=== PATIENT | female | born 1950 | race Caucasian/White ===

== ENCOUNTER → 2018-12-04 16:35 | Outpatient (CLI) | payer MEDICARE, OTHER ==
[2014-08-19 02:16] VITALS: BMI 30.8
[~2018-12-04 16:35] MED LIST: ASPIRIN EC81 M1 PO; BENADRYL25 MG PO; BUSPAR10 MG PO; CARAFATE1 G PO; CATAPRES0.1 MG PO; CITRUCEL500 MG PO; CRESTOR10 MG PO; EFFEXOR75 MG PO; KRILL OIL 1,001 EAC1 PO; LEVOTHROID100 MCG PO; MAGNESIUM GLUC500 M1 PO; PERCOCET 10/3251 TA1 PO; PHENERGAN25 M1 PO; PRILOSEC10 MG PO; ZOFRAN ODT4 MG/UDTAB PO
== END | disposition home or self-care (01) ==
LOC: D.MAMMO 11:15
PROVIDERS: ATTEND Emergency Medicine
DX: Z12.31 Encounter for screening mammogram for malignant neoplasm of breast (principal)

== ENCOUNTER 2020-05-16 14:30 | Outpatient (CLI) | payer MEDICARE, OTHER ==
[2014-08-19 02:16] VITALS: BMI 30.8
== END 2020-05-16 23:59 | disposition home or self-care (01) ==
LOC: D.MAMMO 14:30
PROVIDERS: ATTEND Nurse Practitioner
DX: Z12.31 Encounter for screening mammogram for malignant neoplasm of breast (principal)

== ENCOUNTER 2020-11-17 17:55 | Observation (INO) | payer MEDICARE, OTHER ==
[~2020-11-17] VITALS: Ht 154.9 cm; Wt 63.6 kg
--- NOTE | ~2020-11-17 | OP ---
PATIENT NAME: NICOLE ESTES MEDICAL RECORD: [id number] :52 LOCATION:D.MS [place] ADMISSION DATE:11/17/20 SURGEON: VIOLA LAUREN MD DATE OF OPERATION: 11/18/2020 PREOPERATIVE DIAGNOSES: Acute appendicitis with localized peritonitis. POSTOPERATIVE DIAGNOSES: Acute appendicitis with localized peritonitis. PROCEDURE: Laparoscopic appendectomy. SURGEON: Viola Lauren MD EXTENSION COURSE COUNSELOR: None. BLOOD LOSS: Minimal. ANESTHESIA: General. COMPLICATIONS: None. The risks, possible complications, and alternatives of the procedure were explained to the patient. She elects to proceed. OPERATIVE COURSE: The patient was conveyed to the operating room urgently on 11/18/2020. General anesthesia was induced by the anesthesia staff. The abdomen was sterilely prepped and draped. A small skin fabio was accomplished in the left upper quadrant. Through the skin fabio, a Veress needle was inserted into the peritoneal cavity. CO2 insufflation was begun. Once a sufficient pneumoperitoneum had been achieved, a 5-mm trocar was inserted through a transverse incision in the left lower quadrant. Under direct internal vision utilizing a television camera, a 12-mm trocar was inserted through the incision at the umbilicus and another 5-mm trocar was inserted through an incision in the suprapubic area in the midline. During insertion of the Veress needle and all trocars, there appeared to have been no injury to the bowels, any intraperitoneal or retroperitoneal structures. Abdominal survey was undertaken. I noted no abscess. I was able to bluntly dissect the appendix away from the right pelvic sidewall. It was grasped and retracted anteriorly. The mesoappendix was taken down with the laparoscopic EnSeal device. I then stapled across the tip of the cecum with an Endo-SAIDA type stapler utilizing a blue load. The appendix was placed within a bag retrieval device and was withdrawn through the umbilical fascial defect. The 12-mm trocars were placed and the abdomen reinsufflated. I irrigated and aspirated in the pelvis. There was no bleeding even at low pressure of 8. The Scott-Ryne suture closure device and 0 Vicryl sutures were used to close the umbilical fascia. All the trocars were removed and the abdomen desufflated. The skin incision at the umbilicus was closed with interrupted 4-0 Vicryl Rapide suture. The other skin incisions were closed with interrupted intracuticular 3-0 Vicryls. Benzoin and Steri-Strips were applied. OPERATIVE REPORT [id number] NICOLE ESTES The patient was then extubated and conveyed to post-anesthesia care unit where she was in stable condition. She will be dismissed home on Colace, tramadol, Flagyl as well as Levaquin. I will see her in the office in 2 to 3 weeks. TRANSINT:[id number] Voice Confirmation ID: [id number] DOCUMENT ID: [id number] VIOLA LAUREN MD CC: [id number] DICTATION DATE: 11/18/20932 WEATHERIZATION OPERATIONS MANAGER: 11/18/20 1147 ADM IN [place] [id number] [place] [address]
--- NOTE | ~2020-11-17 | CN ---
PATIENT NAME:NICOLE ESTES MEDICAL RECORD: [id number] : 52 LOCATION:D.MS [place] ADMIT DATE: 11/17/20 ACCOUNT: [id number] CONSULTING PHYSICIAN: VIOLA LAUREN MD REFERRING PHYSICIAN: TAISHA HARRINGTON MD DATE OF CONSULTATION: 11/18/2020 CHIEF COMPLAINT: Appendicitis. HISTORY OF PRESENT ILLNESS: I have reviewed the patient's CT images. I have reviewed the patient's CT report. She has had a right lower quadrant abdominal pain for anywhere from 2-4 days. She has localized peritonitis to percussion. The risks, possible complications, and alternatives of the procedure were explained to the patient. She elects to proceed. The discussion specifically included, but was not limited to, bleeding requiring emergency reoperation, infection. PAST MEDICAL AND SURGICAL HISTORY: Hysterectomy, cholecystectomy, history of some type of anxiety disorder. She has undergone some type of antireflux procedure, hypothyroidism, on replacement therapy, "borderline" apnea, hypertension, vertigo. ALLERGIES: MULTIPLE ALLERGIES ARE NOTED. SHE STATES THAT SHE CAN TAKE MORPHINE SHE THINKS, ALTHOUGH SHE DOES LIST THIS AN ALLERGY. SOCIAL HISTORY: Nonsmoker, drinks alcohol occasionally. MEDICINES AT HOME: Please see the nursing list. PHYSICAL EXAMINATION: GENERAL: She does appear acutely ill. Does not appear chronically ill. VITAL SIGNS: Reviewed. EARS: External ears appear normal. EYES: Extraocular movements are intact. NECK: Trachea is midline. CHEST: No intercostal retractions. PULMONARY: Nonlabored. No stridor. ABDOMEN: As described above. IMPRESSION: Acute appendicitis with localized peritonitis. PLAN: Laparoscopic appendectomy. TRANSINT:[id number] Voice Confirmation ID: [id number] DOCUMENT ID: [id number] VIOLA LAUREN MD CC: SHANELL CHOWDHURY [id number] DICTATION DATE: 11/18/20811 LOBSTER CATCHER: 11/18/20 1059 ADM IN [place] [id number] [place] [address]
[2020-11-17] MEDS ORDERED: TRINTELLIX5 MG PO (18:03)
[2020-11-17] MEDS ORDERED: PROPRANOLOL HCL10 MG PO (18:03)
[2020-11-17] MEDS ORDERED: PROMETRIUM100 MG PO (18:04)
[2020-11-17] MEDS ORDERED: CRESTOR10 MG PO (18:04)
[2020-11-17] MEDS ORDERED: BIEST (18:05)
[2020-11-17] MEDS ORDERED: [UNRECOGNIZED DRUG - OTHER] (18:05)
[2020-11-17 18:47] LABS: BASOPHILS 0.2 % (0-2); EOSINOPHILS 0.1 % (0-7); HEMATOCRIT 47.8 % (36.0-48.0); HEMOGLOBIN 15.4 g/dL (12-16); IMMATURE GRANULOCYTES 0.2 % (0-5); LYMPHOCYTE ABS# 1.24 10x3/uL (1.18-3.74); LYMPHOCYTES 10.9 % (15-50); MCH 26.8 pg (26.0-34.0); MCHC 32.2 g/dL (31.0-37.0); MCV 83.1 fL (80.0-100.0); MONOCYTES 6.3 % (2-11); NEUTROPHIL ABS# 9.36 10x3/uL (1.56-6.13); NEUTROPHILS 82.3 % (40-80); PLATELET COUNT 211 10x3/uL (130-400); RBC 5.75 10x6/uL (4.00-5.40); RDW 13.7 % (11.5-14.5); WBC 11.4 10x3/uL (4.8-10.8)
[2020-11-17 18:54] LABS: CALC OSMOLALITY 278 mosm/kg (275-300); CALCIUM 9.4 mg/dL (8.5-10.1); CARBON DIOXIDE 28.4 mmol/L (21.0-32.0); CHLORIDE - SERUM 101 mmol/L (98-107); CREATININE - SERUM 0.8 mg/dL (0.6-1.3); GLUCOSE 137 mg/dL (74-106); POTASSIUM - SERUM 3.9 mmol/L (3.5-5.1); SODIUM 138 mmol/L (136-145); UREA NITROGEN 14 mg/dL (7-18); eGFR NON AFRICAN AMERICAN 75 mL/min (90-120)
[2020-11-17 19:05] LABS: ALBUMIN 3.7 g/dL (3.4-5.0); ALKALINE PHOSPHATASE 61 U/L (30-120); ALT (SGPT) 26 U/L (10-68); AMYLASE - SERUM 44 U/L (25-115); BILIRUBIN - TOTAL 0.53 mg/dL (0.2-1.3); LIPASE 105 U/L (73-393)
[2020-11-17 19:09] LABS: TROPONIN-I < 0.017 ng/mL (0.000-0.060)
[2020-11-17 19:39] LABS: BILIRUBIN NEGATIVE (NEGATIVE); KETONE MODERATE mg/dL (NEGATIVE); NITRITE NEGATIVE (NEGATIVE); UROBILINOGEN NORMAL mg/dL (< 2)
[2020-11-17 19:45] LABS: UDS - AMPHET NEGATIVE QUAL (NEGATIVE); UDS - BARB NEGATIVE QUAL (NEGATIVE); UDS - BENZO NEGATIVE QUAL (NEGATIVE); UDS - COCAINE NEGATIVE QUAL (NEGATIVE); UDS - OPIATE NEGATIVE QUAL (NEGATIVE); UDS - PCP NEGATIVE QUAL (NEGATIVE); UDS - THC NEGATIVE QUAL (NEGATIVE)
[2020-11-17 20:00] VITALS: BP 121/70
[2020-11-17 21:00] VITALS: BP 117/58
[2020-11-17 22:00] VITALS: BP 122/63
[2020-11-18 00:23] VITALS: BP 119/66
[2020-11-18 03:41] VITALS: Ht 154.9 cm; Wt 63.6 kg
[2020-11-18 04:00] VITALS: BP 93/46
--- NOTE | 2020-11-18 04:11 | NUR ---
PT UP TO BATHROOM SHE PULLED IV THAT WAS IN HER RFA. IV REMOVED INTACTED. NEW IV PLACE LFA 20G NS @100ML. O2 PLACE FOR PT @2L. PT IS COMPLAINING OF PAIN MED GIVEN.
[2020-11-18 05:43] LABS: BASOPHILS 0.1 % (0-2); EOSINOPHILS 0 % (0-7); IMMATURE GRANULOCYTES 0.2 % (0-5); LYMPHOCYTE ABS# 1.71 10x3/uL (1.18-3.74); LYMPHOCYTES 16.5 % (15-50); MCH 25.9 pg (26.0-34.0); MCHC 31.4 g/dL (31.0-37.0); MCV 82.4 fL (80.0-100.0); MEAN PLATELET VOLUME 9.6 fL (7.4-10.4); MONOCYTES 8.3 % (2-11); NEUTROPHIL ABS# 7.74 10x3/uL (1.56-6.13); NEUTROPHILS 74.9 % (40-80); PLATELET COUNT 243 10x3/uL (130-400); RDW 13.8 % (11.5-14.5); WBC 10.3 10x3/uL (4.8-10.8)
[2020-11-18 05:49] LABS: HEMATOCRIT 37.9 % (36.0-48.0); HEMOGLOBIN 11.9 g/dL (12-16)
[2020-11-18 05:55] LABS: APTT 28.3 SECONDS (22.8-39.4); INR 1.21 (0.85-1.17); PROTIME 14.2 SECONDS (11.6-15.0)
[2020-11-18 05:59] LABS: ALKALINE PHOSPHATASE 49 U/L (30-120); BILIRUBIN - TOTAL 0.87 mg/dL (0.2-1.3); CALC OSMOLALITY 272 mosm/kg (275-300); CALCIUM 7.9 mg/dL (8.5-10.1); CARBON DIOXIDE 26.4 mmol/L (21.0-32.0); CHLORIDE - SERUM 102 mmol/L (98-107); CREATININE - SERUM 0.7 mg/dL (0.6-1.3); GLUCOSE 119 mg/dL (74-106); MAGNESIUM - SERUM 2.4 mg/dL (1.8-2.4); PHOSPHOROUS 2.4 mg/dL (2.5-4.9); POTASSIUM - SERUM 3.6 mmol/L (3.5-5.1); PROTEIN - SERUM 6.2 g/dL (6.4-8.2); SODIUM 136 mmol/L (136-145); UREA NITROGEN 12 mg/dL (7-18); eGFR NON AFRICAN AMERICAN 88 mL/min (90-120)
[2020-11-18 06:05] LABS: ALBUMIN 2.7 g/dL (3.4-5.0); ALT (SGPT) 118 U/L (10-68)
--- NOTE | 2020-11-18 07:52 | NUR ---
OFF FLO[facility] AT [facility] TIME [facility] STABLE CONDITION UPON DEPARTURE.
[2020-11-18 10:17] VITALS: BP 95/55
--- NOTE | 2020-11-18 10:22 | NUR ---
REC'D BACK TO ROOM 2210 AT THIS TIME WITH A BP OF 95/55. BP WAS TAKEN A COUPLE MORE TIME WITH BP. FLUID WAS RESTARTED SHORTLY AFTER AND PT CHECKED ON OFTEN. EASILY TO AROUSED WHEN NAME WAS CALLED. NO C/O NOTED OR VOICED AT THIS TIME. AND C/L IN REACH AT BEDSIDE.
--- NOTE | 2020-11-18 10:32 | NUR ---
pt sent to room. bp was 95/55 upon arrival to room. bp before surgery according to chart was 93/46 at 0400. no narcotics were given during the time in pacu. pt awake and talking while in room to . pt on 3 l. vss. relayed to nurse that pt was difficult to wake up from anesthesia and was very drowsy so no narcotics given.
[2020-11-18 12:00] VITALS: BP 89/53
[2020-11-18] MEDS ORDERED: HYDROCODON-ACE1 EAC7 PO ×2 (16:30→16:31)
[2020-11-18] MEDS ORDERED: COLACE100 MG PO (16:46)
[2020-11-18] MEDS ORDERED: FLAGYL500 MG PO (16:46)
[2020-11-18] MEDS ORDERED: LEVOFLOXACIN500 MG PO (16:47)
[2020-11-18 17:11] VITALS: BP 147/92
--- NOTE | 2020-11-18 18:22 | NUR ---
I have reviewed this patient and I concur with the Shift Assessment completed by the Licensed Practical Nurse today this shift.
--- NOTE | 2020-11-18 18:33 | NUR ---
DC HOME AT THIS TIME WITH ALL PERSONAL BELONGING. VOICE UNDERSTANDING OF DC INSTRUCTION. IV DC NO C/O NOTE. C/L IN REACH AT BEDSIDE.
== END 2020-11-18 19:40 | disposition home or self-care (01) ==
LOC: D.ER 17:55 → D.MS 20:16 → OBSVTIME 20:16 → D.ER 22:18 → D.MS 22:18
PROVIDERS: Family Medicine; ADMIT Family Medicine; ATTEND Family Medicine
DX: K35.30 Acute appendicitis with localized peritonitis, without perforation or gangrene (principal); R10.30 Lower abdominal pain, unspecified; I10 Essential (primary) hypertension; K21.9 Gastro-esophageal reflux disease without esophagitis; E78.5 Hyperlipidemia, unspecified; G47.33 Obstructive sleep apnea (adult) (pediatric); M19.90 Unspecified osteoarthritis, unspecified site

== ENCOUNTER 2020-11-21 13:07 | Inpatient (IN) | payer MEDICARE, OTHER ==
[~2020-11-21] VITALS: Ht 154.9 cm; Wt 69.6 kg
--- NOTE | ~2020-11-21 | HEMODYNAMI ---
PATIENT:NICOLE ESTES MEDICAL RECORD: [id number] : 52 LOCATION:[place] [address] ADMISSION DATE: 11/21/20 Generatedon:114:18 Patient name: NICOLE ESTES Patient #: [id number] SSN: : 1950 Date of study: 11/25/2020 Page: Of Hemodynamic Procedure Report Patient Data Patient Demographics Procedure consent was obtained First Name: NICOLE Gender: Female Last Name: FRANKLYN : 1950 Middle Initial: NESTOR Age: 70 year(s) Patient #: [id number] Race: Unknown Additional ID: [id number] Contact details [address]: [address] [place] [address] State: [place] City: [place] Zip code: [address] Admission Admission Data Admission Date: 11/21/2020 Admission Time: 20:53 Room #: D.2209 Procedure Procedure Types Cath Procedure Peripheral Cath Diagnostic Procedure Abscess Abscess Drain Injection Procedure Description Procedure Date Procedure Date: 11/25/2020 Procedure Start Time: 14:05 Procedure Staff Name Function Omega Orozoc MD Performing Physician Charles Husain RT Monitor FRANCIE SMALLWOOD RT Scrub Pao Yi RN Nurse Procedure Data Cath Procedure Fluoroscopy Diagnostic fluoroscopy Total fluoroscopy Time: 0.9 time: 0.9 min min Diagnostic fluoroscopy Total fluoroscopy dose: 14 dose: 14 mGy mGy Contrast Material Contrast Material Type Amount (ml) Isovue 300 10 Hemodynamics Rest Pre Cath Intra NCS Post Cath Procedure Log Time Note 13:50:58 Charles Husain RT (R) (CV) sent for patient. Start room use. 13:51:07 Time tracking: Regular hours (M-F 7:00 - 5:00) 13:51:13 Plan of Care:Hemodynamics will remain stable., Cardiac rhythm will remain stable., Comfort level will be maintained., Respiratory function will remain adequate., Patient/ family verbilizes understanding of procedure., Procedure tolerated without complication., Recovers from procedure without complications.. 13:51:22 Patient received from Med/Surg to IR Alert and oriented. Tansferred to table in Prone position. 13:51:26 Signed procedure consent form obtained from patient. 13:51:28 Correct patient and procedure confirmed by team. 13:51:30 Full Disclosure recording started 13:51:39 - 13:51:45 H&P Date Dictated: 11/25/2020 Within 30 days and on chart.. 13:51:47 Pre-procedure instructions explained to patient. 13:51:47 Pre-procedure instructions explained to patient. 13:51:48 Pre-op teaching completed and patient verbalized understanding. 13:51:51 Family in patients room. 13:51:54 Patient NPO since Breakfast. 13:52:02 Use device set IR Diagnostic 13:52:04 Bag Decanter () opened to sterile field. 13:52:04 Sterile Angiographic Pack opened to sterile field. 13:52:05 Tegaderm 4 x 4 ([id number]) opened to sterile field. 13:57:24 Is patient on blood thinner?No 13:57:26 Patient diabetic? No. 13:57:27 - 13:57:27 ----Pre-sedation anethsthesia assessment.---- 13:57:31 Previous problem with sedation/anesthesia? No ? 13:57:34 Snore? Yes 13:57:36 Sleep apnea? Yes 13:57:37 Deviated septum? No 13:57:38 Opens mouth fully? Yes 13:57:39 Sticks out tongue? Yes 13:57:41 Airway obstruction? No ? 13:58:08 IV patent on arrival in left forearm with 0.9% NaCl at O. 14:04:37 Alarms reviewed by RKeyla N. 14:04:38 Sharps counted by scrub and verified by R.N. 14:04:50 Left Lumbar was prepped with chlora-prep and draped in sterile fashion. 14:04:52 Physician arrived 14:04:52 --------ALL STOP TIME OUT------ 14:04:56 Final Timeout: patient, procedure, and site verified with staff and physician. All members of the team are in agreement. 14:05:05 Lumbar site verified by team. 14:05:11 Fire Safety Assessment: A--An alcohol-based skin anteseptic being used preoperatively., C--Open oxygen or nitrous oxide is being used. 14:05:18 Sedation plan: IV Moderate Sedation Medication:Fentanyl 14:05:27 Procedure started. 14:12:52 GLIDE WIRE ANGLE 180cm ([id number]) opened to sterile field. 14:13:22 Procedure ended.(Physican Out) 14:14:22 Fluoroscopy time 00.90 minutes. 14:14:25 Fluoroscopy dose: 14 mGy 14:14:25 Flurop Dose total: 14 14:14:30 Insertion/operative site no bleeding no hematoma. 14:14:36 Post-op/insertion site Left Lumbar area dressed using a 4 x 4 and Tegaderm. 14:14:44 Post Lumbar area:stable 14:14:52 Contrast amount:Isovue 300 10ml. 14:18:27 Report given to Med/Surg. 14:18:30 Patient transfered to Med/Surg with Bed. Device Usage Item Name Manufacture Quantity Catalog Hospital Part Current Minimal Lot# / Number Charge Number Stock Stock Serial# Code Bag Decanter Microtek 1 [id number] 5 () [employer] Sterile Cardinal 1 [id number] 5 Angiographic Health Pack Tegaderm 4 x 3M 1 [id number] 5 4 (1626W) GLIDE WIRE Terumo 1 [id number] 5 ANGLE 180cm ([id number]) Signature Audit [place] Stage Time Signature Unsigned Intra-Procedure 11/25/2020 Charles 2:18:43 PM [place] RT (R) (CV) [facility] [address] [place] [address]
[~2020-11-21 13:07] MED LIST changes: +BIEST; +COLACE100 MG PO; +FLAGYL500 MG PO; +HYDROCODON-ACE1 EAC7 PO; +LEVOFLOXACIN500 MG PO; +PROMETRIUM100 MG PO; +PROPRANOLOL HCL10 MG PO; +TRINTELLIX5 MG PO; +[UNRECOGNIZED DRUG - OTHER]
[2020-11-21 14:16] LABS: CALC OSMOLALITY 273 mosm/kg (275-300); CALCIUM 9.4 mg/dL (8.5-10.1); CARBON DIOXIDE 26.5 mmol/L (21.0-32.0); CHLORIDE - SERUM 100 mmol/L (98-107); CREATININE - SERUM 0.7 mg/dL (0.6-1.3); GLUCOSE 106 mg/dL (74-106); POTASSIUM - SERUM 3.3 mmol/L (3.5-5.1); SODIUM 138 mmol/L (136-145); UREA NITROGEN 8 mg/dL (7-18); eGFR NON AFRICAN AMERICAN 88 mL/min (90-120)
[2020-11-21 14:20] LABS: BASOPHILS 0.3 % (0-2); EOSINOPHILS 1.2 % (0-7); HEMATOCRIT 40.1 % (36.0-48.0); HEMOGLOBIN 12.9 g/dL (12-16); IMMATURE GRANULOCYTES 0.8 % (0-5); LYMPHOCYTE ABS# 1.65 10x3/uL (1.18-3.74); LYMPHOCYTES 11.1 % (15-50); MCH 26.4 pg (26.0-34.0); MCHC 32.2 g/dL (31.0-37.0); MEAN PLATELET VOLUME 9.7 fL (7.4-10.4); MONOCYTES 11.3 % (2-11); NEUTROPHIL ABS# 11.21 10x3/uL (1.56-6.13); NEUTROPHILS 75.3 % (40-80); RBC 4.89 10x6/uL (4.00-5.40); RDW 13.4 % (11.5-14.5); WBC 14.9 10x3/uL (4.8-10.8)
[2020-11-21 14:22] LABS: ALBUMIN 2.6 g/dL (3.4-5.0); ALKALINE PHOSPHATASE 105 U/L (30-120); ALT (SGPT) 72 U/L (10-68); AMYLASE - SERUM 29 U/L (25-115); BILIRUBIN - TOTAL 0.33 mg/dL (0.2-1.3); LIPASE 57 U/L (73-393); PROTEIN - SERUM 7.3 g/dL (6.4-8.2)
[2020-11-21 14:25] LABS: PLATELET COUNT 300 10x3/uL (130-400)
[2020-11-21 15:05] LABS: BILIRUBIN NEGATIVE (NEGATIVE); KETONE MODERATE mg/dL (NEGATIVE); NITRITE NEGATIVE (NEGATIVE); UROBILINOGEN NORMAL mg/dL (< 2)
[2020-11-21 19:27] VITALS: BP 128/72
[2020-11-21 19:31] LABS: APTT 28.8 SECONDS (22.8-39.4); INR 1.09 (0.85-1.17); PROTIME 13.1 SECONDS (11.6-15.0)
--- NOTE | 2020-11-21 20:53 | NUR ---
REPORT GIVENT O SILVANA MED SURG. INDERAL NOT GIVEN. NURSSE NOTIFIED UNABLE TO OBTAIN IN ER PYXIS.
[2020-11-21 21:46] VITALS: BP 145/75
[2020-11-22] VITALS: BP 131/71
[2020-11-22 02:21] VITALS: BP 131/71; BMI 30.6
[2020-11-22 04:00] VITALS: BP 141/49
[2020-11-22 05:44] LABS: BASOPHILS 0.3 % (0-2); EOSINOPHILS 2.1 % (0-7); IMMATURE GRANULOCYTES 0.8 % (0-5); LYMPHOCYTE ABS# 1.83 10x3/uL (1.18-3.74); LYMPHOCYTES 15.9 % (15-50); MCH 26.1 pg (26.0-34.0); MCHC 32.1 g/dL (31.0-37.0); MCV 81.4 fL (80.0-100.0); MEAN PLATELET VOLUME 9.2 fL (7.4-10.4); NEUTROPHIL ABS# 7.36 10x3/uL (1.56-6.13); NEUTROPHILS 63.9 % (40-80); PLATELET COUNT 295 10x3/uL (130-400); RDW 13.4 % (11.5-14.5); WBC 11.5 10x3/uL (4.8-10.8)
[2020-11-22 06:01] LABS: HEMATOCRIT 31.5 % (36.0-48.0); HEMOGLOBIN 10.1 g/dL (12-16); RBC 3.87 10x6/uL (4.00-5.40)
[2020-11-22 06:19] LABS: ALKALINE PHOSPHATASE 81 U/L (30-120); BILIRUBIN - TOTAL 0.21 mg/dL (0.2-1.3); CALCIUM 8.2 mg/dL (8.5-10.1); CARBON DIOXIDE 26.9 mmol/L (21.0-32.0); CHLORIDE - SERUM 104 mmol/L (98-107); CREATININE - SERUM 0.8 mg/dL (0.6-1.3); GLUCOSE 103 mg/dL (74-106); PROTEIN - SERUM 5.5 g/dL (6.4-8.2); SODIUM 140 mmol/L (136-145); eGFR NON AFRICAN AMERICAN 75 mL/min (90-120)
[2020-11-22 06:20] LABS: ALBUMIN 1.9 g/dL (3.4-5.0); ALT (SGPT) 53 U/L (10-68); CALC OSMOLALITY 275 mosm/kg (275-300); UREA NITROGEN 5 mg/dL (7-18)
[2020-11-22 06:21] LABS: POTASSIUM - SERUM 2.9 mmol/L (3.5-5.1)
--- NOTE | 2020-11-22 07:18 | NUR ---
SLEEPING,WITHOUT SIGNS OF DISTRESS
[2020-11-22 08:30] VITALS: BP 124/70
[2020-11-22] MEDS ORDERED: PROBIOTIC250 MG PO (09:16)
[2020-11-22] MEDS ORDERED: MELATONIN 3 MG1 TAB PO (09:19)
[2020-11-22 12:31] VITALS: Ht 154.9 cm; Wt 69.6 kg
[2020-11-22 14:00] VITALS: BP 124/67
--- NOTE | 2020-11-22 14:30 | CN ---
PATIENT NAME:NICOLE ESTES MEDICAL RECORD: [id number] : 52 LOCATION:D.MS [place] ADMIT DATE: 11/21/20 ACCOUNT: [id number] CONSULTING PHYSICIAN: VIOLA LAUREN MD REFERRING PHYSICIAN: LAZARO DODD MD DATE OF CONSULTATION: 11/21/2020 CHIEF COMPLAINT: Pain. HISTORY OF PRESENT ILLNESS: The patient has been having pelvic pain as well as right lower quadrant pain. The patient underwent appendectomy on Saturday. She began getting nausea yesterday. She has been having fever. She has had some diarrhea as well. I have reviewed her CT images. I have reviewed the CT report. The pain began suddenly and has been present for over a day. It is in the lower abdomen and pelvis, severe pain. Palpation aggravates. Nothing alleviates. REVIEW OF SYSTEMS: Negative other than as described above. ALLERGIES: NUMEROUS ALLERGIES ARE PRESENT AND THESE ARE REVIEWED. HOME MEDICATIONS: Hydrocodone. Also, she says that she has been taking her antibiotics, which includes Levaquin and Flagyl. PAST MEDICAL HISTORY: Hypothyroidism, dyslipidemia, hypertension, sleep apnea, anxiety, insomnia, arthritis, osteoporosis, gastroesophageal reflux. PAST SURGICAL HISTORY: Hysterectomy. SOCIAL HISTORY: Does not smoke. Labs have been reviewed. The entire examination was performed in the presence of a female city superintendent of schools. PHYSICAL EXAMINATION: GENERAL: The patient does not appear chronically ill. She does appear acutely ill. VITAL SIGNS: Reviewed. EARS: External ears appear normal. EYES: Extraocular movements are intact. NECK: Trachea is midline. CHEST: No intercostal retractions. PULMONARY: Nonlabored. No stridor. ABDOMEN: Tenderness over the pelvis. Tenderness of the right lower quadrant. There is peritonitis to percussion. EXTREMITIES: No peripheral cyanosis. PSYCHIATRIC: Anxious affect. IMPRESSION: Postoperative pelvic abscess after a laparoscopic appendectomy. PLAN: Narcotic analgesic LIBRARY HELPER. IV fluids. Consult IR in the morning for a CT-guided drainage of the pelvic abscess. CONSULT REPORT [id number] NICOLE ESTES TRANSINT:[id number] Voice Confirmation ID: [id number] DOCUMENT ID: [id number] VIOLA LAUREN MD at 1430 CC: [id number] DICTATION DATE: 11/21/201932 ACCT EXEC: 11/22/20 [address] [facility] [address] [place] [address]
--- NOTE | 2020-11-22 15:00 | NUR ---
OFF FLOOR AT THIS TIME TO GI LAB FOR PROCEDURE.
--- NOTE | 2020-11-22 16:50 | NUR ---
JUST RETURN TO FLOOR AT THIS TIME IN STABLE CONDITION WITH NO C/O NOTED OR VOICED.
[2020-11-22 20:00] VITALS: BP 133/71
--- NOTE | 2020-11-22 22:41 | NUR ---
INITIATED PIV TO RIGHT HAND, 18G X1 ATTEMPT. GOOD RETURN, FLUSHES WELL. PT TOLERATED WELL. BED LOW, CL IN REACH.
--- NOTE | 2020-11-22 23:15 | NUR ---
rec'd. walking rounds chge. of shift. eyes closed resp, deep and even. lying on right side.drsg. dry and intact to buttocks with drain and lite colored drainage observed.will continue to monitor for any post-op chges and follow current plan of care.
[2020-11-23] VITALS: BP 133/76
--- NOTE | 2020-11-23 02:40 | NUR ---
I have reviewed this patient and I concur with the Shift Assessment completed by the Licensed Practical Nurse today this shift.
[2020-11-23 04:00] VITALS: BP 154/85
[2020-11-23 07:10] LABS: BASOPHILS 0.4 % (0-2); EOSINOPHILS 2.8 % (0-7); HEMATOCRIT 28.9 % (36.0-48.0); IMMATURE GRANULOCYTES 1.3 % (0-5); LYMPHOCYTES 22.3 % (15-50); MCH 25.6 pg (26.0-34.0); MCHC 31.1 g/dL (31.0-37.0); MCV 82.1 fL (80.0-100.0); MEAN PLATELET VOLUME 9.2 fL (7.4-10.4); NEUTROPHIL ABS# 5.31 10x3/uL (1.56-6.13); NEUTROPHILS 56.2 % (40-80); PLATELET COUNT 335 10x3/uL (130-400); RBC 3.52 10x6/uL (4.00-5.40); RDW 13.8 % (11.5-14.5); WBC 9.4 10x3/uL (4.8-10.8)
--- NOTE | 2020-11-23 07:20 | NUR ---
RESTING IN BED WITH EYES OPEN, ALERT AND ORIENTED.IV LOCATED TO RIGHT HAND CURRENTLY RUNNING NS @ 100ML. NO CURRENT S/S OF DISTRESS, DENIES CURRENT NEEDS OTHER THAN MORE PAIN MEDS WHEN ITS TIME, WILL CONT TO MONITOR.
[2020-11-23 07:27] LABS: ALBUMIN 1.7 g/dL (3.4-5.0); ALKALINE PHOSPHATASE 71 U/L (30-120); ALT (SGPT) 43 U/L (10-68); BILIRUBIN - TOTAL 0.17 mg/dL (0.2-1.3); CALC OSMOLALITY 274 mosm/kg (275-300); CALCIUM 7.7 mg/dL (8.5-10.1); CARBON DIOXIDE 25.9 mmol/L (21.0-32.0); CHLORIDE - SERUM 106 mmol/L (98-107); CREATININE - SERUM 0.6 mg/dL (0.6-1.3); GLUCOSE 91 mg/dL (74-106); MAGNESIUM - SERUM 1.9 mg/dL (1.8-2.4); PROTEIN - SERUM 5.1 g/dL (6.4-8.2); SODIUM 139 mmol/L (136-145); UREA NITROGEN 5 mg/dL (7-18); eGFR NON AFRICAN AMERICAN > 90 mL/min (90-120)
[2020-11-23 07:28] LABS: POTASSIUM - SERUM 3.4 mmol/L (3.5-5.1)
[2020-11-23 08:47] VITALS: BP 119/62
[2020-11-23 12:25] VITALS: BP 140/75
[2020-11-23 16:57] VITALS: BP 132/73
[2020-11-23 20:00] VITALS: BP 123/81
--- NOTE | 2020-11-23 23:40 | NUR ---
PT REPORT THAT SHE FEELS LIKE SHE MAY BE HAVING AN ALLERGIC REACTION. HER FACE APPEARS SLIGHTLY SWOLLEN. NO REDNESS OR HIVES NOTED. WILL CONTACT WEIGHT LOSS SALES CONSULTANT FOR ORDERS. PT STATES SHE PREFERS [facility] TO [place]. [place]UD[place].
[2020-11-24] VITALS: BP 168/84
--- NOTE | 2020-11-24 00:09 | NUR ---
RECEIVED ORDERS FROM ESTHETICIAN PERMANENT MAKEUP ARTIST VIA PHONE. PT VERBALIZED UNDERSTANDING. WILL GIVE BENEDRYL WHEN VERIFIED WITH PHARMACY.
[2020-11-24 04:00] VITALS: BP 122/74
[2020-11-24 06:14] LABS: BASOPHILS 0.3 % (0-2); EOSINOPHILS 4.1 % (0-7); HEMATOCRIT 32.9 % (36.0-48.0); HEMOGLOBIN 10.4 g/dL (12-16); IMMATURE GRANULOCYTES 1.8 % (0-5); LYMPHOCYTE ABS# 2.16 10x3/uL (1.18-3.74); LYMPHOCYTES 28.4 % (15-50); MCH 25.9 pg (26.0-34.0); MCHC 31.6 g/dL (31.0-37.0); MCV 81.8 fL (80.0-100.0); MEAN PLATELET VOLUME 8.9 fL (7.4-10.4); MONOCYTES 15.8 % (2-11); NEUTROPHIL ABS# 3.78 10x3/uL (1.56-6.13); NEUTROPHILS 49.6 % (40-80); RBC 4.02 10x6/uL (4.00-5.40); RDW 13.6 % (11.5-14.5); WBC 7.6 10x3/uL (4.8-10.8)
[2020-11-24 06:15] LABS: PLATELET COUNT 409 10x3/uL (130-400)
[2020-11-24 06:43] LABS: ALKALINE PHOSPHATASE 75 U/L (30-120); ALT (SGPT) 40 U/L (10-68); BILIRUBIN - TOTAL 0.15 mg/dL (0.2-1.3); CALCIUM 8.7 mg/dL (8.5-10.1); CARBON DIOXIDE 30.2 mmol/L (21.0-32.0); CHLORIDE - SERUM 106 mmol/L (98-107); CREATININE - SERUM 0.6 mg/dL (0.6-1.3); GLUCOSE 98 mg/dL (74-106); MAGNESIUM - SERUM 2.1 mg/dL (1.8-2.4); PROTEIN - SERUM 5.9 g/dL (6.4-8.2); SODIUM 141 mmol/L (136-145); eGFR NON AFRICAN AMERICAN > 90 mL/min (90-120)
[2020-11-24 06:44] LABS: CALC OSMOLALITY 278 mosm/kg (275-300); POTASSIUM - SERUM 4.2 mmol/L (3.5-5.1); UREA NITROGEN 7 mg/dL (7-18)
[2020-11-24 08:48] VITALS: BP 149/81
[2020-11-24 12:46] VITALS: BP 116/66
--- NOTE | 2020-11-24 14:05 | NUR ---
NUTRITION FOLLOW UP: INTERVIEW: Met with patient and in the room. Patient stated her appetiet has been good and enjoys the food at this hospital. She discussed dietary has not been helping fill out menus and patient has many food restrictions. Contacted dietary department to ensure patient selects her foods for her meals. Patient stated she experienced some nasuea last night and denied any recent diarrhea or constipation. Patient stated she cannot eat: Milk products, yeast, garlic, gluten, wheat, potatoes, carrots, any root vegetables, or gravy. DIET: Regular Diet PO INTAKE: None recorded at this time WEIGHT: 11/21-162 lbs BM: x 1 on 11/24 SIG MEDS: Probiotic, Progesterone, Colace, Protonix, KCl IV FLUIDS: NS @ 30 cc/hr SIG LABS: Albumin-2.0(L) RECOMMENDATIONS: Continue Regular diet as tolerated Assistance with food selection RD to follow up on 11/29
[2020-11-24 17:11] VITALS: BP 131/73
[2020-11-24 20:23] VITALS: BP 114/80
[2020-11-25] VITALS: BP 145/80
[2020-11-25 04:21] VITALS: BP 131/75
--- NOTE | 2020-11-25 05:13 | NUR ---
I have reviewed this patient and I concur with the Shift Assessment completed by the Licensed Practical Nurse today this shift.
[2020-11-25 05:51] LABS: ALBUMIN 1.9 g/dL (3.4-5.0); ALKALINE PHOSPHATASE 67 U/L (30-120); ALT (SGPT) 33 U/L (10-68); CALC OSMOLALITY 278 mosm/kg (275-300); CALCIUM 8.4 mg/dL (8.5-10.1); CARBON DIOXIDE 28.9 mmol/L (21.0-32.0); CHLORIDE - SERUM 106 mmol/L (98-107); CREATININE - SERUM 0.6 mg/dL (0.6-1.3); GLUCOSE 95 mg/dL (74-106); MAGNESIUM - SERUM 1.9 mg/dL (1.8-2.4); PROTEIN - SERUM 5.6 g/dL (6.4-8.2); SODIUM 141 mmol/L (136-145); UREA NITROGEN 8 mg/dL (7-18); eGFR NON AFRICAN AMERICAN > 90 mL/min (90-120)
[2020-11-25 05:54] LABS: BASOPHILS 0.1 % (0-2); EOSINOPHILS 4.2 % (0-7); HEMATOCRIT 31.7 % (36.0-48.0); HEMOGLOBIN 9.9 g/dL (12-16); IMMATURE GRANULOCYTES 1.4 % (0-5); LYMPHOCYTE ABS# 2.02 10x3/uL (1.18-3.74); LYMPHOCYTES 28.1 % (15-50); MCH 25.4 pg (26.0-34.0); MCHC 31.2 g/dL (31.0-37.0); MCV 81.3 fL (80.0-100.0); MEAN PLATELET VOLUME 9.1 fL (7.4-10.4); MONOCYTES 13.4 % (2-11); NEUTROPHIL ABS# 3.79 10x3/uL (1.56-6.13); NEUTROPHILS 52.8 % (40-80); PLATELET COUNT 444 10x3/uL (130-400); RDW 13.7 % (11.5-14.5); WBC 7.2 10x3/uL (4.8-10.8)
[2020-11-25 08:00] VITALS: BP 142/60
[2020-11-25 11:00] VITALS: BP 138/97
--- NOTE | 2020-11-25 13:00 | NUR ---
REPORTS RECD FROM NICK SHIRLEY. PT RESTING IN BED RESPIRATIONS ARE EVEN AND UNLABORED. AAO X 4. SO AT BEDSIDE. INCENTIVE SPIROMETER WITHIN REACH AND ENCOURAGED. VERBALIZE UNDERSTANDING. BED IS IN THE LOWEST POSITION. CALL LIGHT AND BEDSIDE TABLE ARE WITHIN REACH. SIDE RAILS X 2. PT DENIES FURTHER NEEDS. WILL CONT TO MONITOR.
--- NOTE | 2020-11-25 13:35 | NUR ---
CONSENT FOR ABSCESSOGRAM SIGNED BY PT SPOUSE AT PT REQUESTS. SIGNED CONSENTS PLACED IN PT CHART.
--- NOTE | 2020-11-25 14:31 | NUR ---
PT ARRIVES FROM IR. DRAIN REMOVED PER IR STAFF. PT IS AAO X 4 AND SPOUSE AT BEDSIDE. NO APPARENT S/S OF DISTRESS NOTED. INCENTIVE SPIROMETER ENCOURAGED. BED IS IN THE LOWEST POSITION. CALL LIGHT AND BEDSIDE TABLE ARE WITHIN REACH. SIDE RAILS X 2. PT AND PT SO DENT FURTHER NEEDS. WILL CONT TO MONITOR
[2020-11-25] MEDS ORDERED: LEVOFLOXACIN500 MG PO (14:36)
[2020-11-25] MEDS ORDERED: FLAGYL500 MG PO (14:36)
[2020-11-25] MEDS ORDERED: HYDROCODONE-AC1 EAC2 PO (14:37)
[2020-11-25 15:00] VITALS: BP 121/70
--- NOTE | 2020-11-25 15:40 | NUR ---
PT RESTING COMFORTABLY IN BED. SPOUSE AT BEDSIDE. PIV INFUSING PER ORDER WITHOUT DIFFICULTY/COMPROMISE. BED IS IN THE LOWEST POSITION. CALL LIGHT AND BEDSIDE TABLE ARE WITHN REACH. SIDE RAILS X 2. WILL CONT TO MONITOR
[2020-11-25 20:00] VITALS: BP 161/81
--- NOTE | 2020-11-26 00:15 | NUR ---
I have reviewed this patient and I concur with the Shift Assessment completed by the Licensed Practical Nurse today this shift.
[2020-11-26 04:00] VITALS: BP 160/91
[2020-11-26 06:39] LABS: BASOPHILS 0.5 % (0-2); EOSINOPHILS 4.2 % (0-7); HEMATOCRIT 32.5 % (36.0-48.0); HEMOGLOBIN 10.4 g/dL (12-16); IMMATURE GRANULOCYTES 1.1 % (0-5); LYMPHOCYTE ABS# 1.57 10x3/uL (1.18-3.74); LYMPHOCYTES 23.8 % (15-50); MCH 25.7 pg (26.0-34.0); MCV 80.2 fL (80.0-100.0); MEAN PLATELET VOLUME 8.9 fL (7.4-10.4); MONOCYTES 15.6 % (2-11); NEUTROPHIL ABS# 3.61 10x3/uL (1.56-6.13); NEUTROPHILS 54.8 % (40-80); PLATELET COUNT 517 10x3/uL (130-400); RBC 4.05 10x6/uL (4.00-5.40); RDW 13.4 % (11.5-14.5); WBC 6.6 10x3/uL (4.8-10.8)
[2020-11-26 07:16] LABS: ALBUMIN 2.1 g/dL (3.4-5.0); ALKALINE PHOSPHATASE 68 U/L (30-120); ALT (SGPT) 31 U/L (10-68); BILIRUBIN - TOTAL 0.14 mg/dL (0.2-1.3); CALC OSMOLALITY 283 mosm/kg (275-300); CARBON DIOXIDE 28.6 mmol/L (21.0-32.0); CHLORIDE - SERUM 107 mmol/L (98-107); CREATININE - SERUM 0.6 mg/dL (0.6-1.3); GLUCOSE 105 mg/dL (74-106); POTASSIUM - SERUM 3.8 mmol/L (3.5-5.1); SODIUM 143 mmol/L (136-145); UREA NITROGEN 10 mg/dL (7-18); eGFR NON AFRICAN AMERICAN > 90 mL/min (90-120)
--- NOTE | 2020-11-26 07:28 | NUR ---
TYLENOL FOR PAIN ORDERED 11/12 TO BACK WHERE DRAIN WAS. PATIENT DECLINES DILAUDID. PATIENT STATES SHE WANTS NO NARCOTICS. AT BEDSIDE.
--- NOTE | 2020-11-26 07:59 | NUR ---
MORNING ROUNDS MADE, PT AAOX4 UPON ENTERING. AT BEDSIDE. DENIES ANY NEEDS AT THIS TIME. BED IN LOWEST POSITION, BED RAILS X2, CALL LIGHT WITHIN REACH. WILL CONTINUE POC.
[2020-11-26 08:16] VITALS: BP 137/78
--- NOTE | 2020-11-26 08:35 | NUR ---
IN BED WITH EYES CLOSED, AROUSES EASILY TO VOICE. ADMINISTERED MORNING MEDICATION AT THIS TIME, TOLERATED WELL. ZOFRAN FOR NAUSEA. FAMILY AT BEDSIDE. DENIES ANY NEEDS AT THIS TIME. WILL CONTINUE POC.
--- NOTE | 2020-11-26 10:03 | NUR ---
ADMINISTERED MEDICATION, NO DIFFICUTLIES. RESTING COMFORTABLY. FAMILY AT BEDSIDE. DENIES ANY NEEDS. WILL CONTINUE POC.
--- NOTE | 2020-11-26 11:35 | NUR ---
PRN TYLENOL FOR 3/10 PAIN. NO DIFFICUTLIES. FAMILY AT BEDSIDE. DENIES FURTHER NEEDS. WILL CONTINUE POC.
[2020-11-26 12:01] VITALS: BP 133/65
[2020-11-26] MEDS ORDERED: TORADOL10 MG PO (12:21)
--- NOTE | 2020-11-26 13:23 | NUR ---
EDUCATED PT ON DISCHARGE INSTRUCTIONS, FOLLOW UP APT, TAKING MEDICATIONS PRESCRIBED, VERBALIZED UNDERSTANDING AND SIGNED PAPERWORK. REMOVED PIV FROM LEFT FOREARM, NO REDNESS OR SWELLING.
--- NOTE | 2020-11-26 14:16 | MORECARE ---
CASE MANAGEMENT DISCHARGE SUMMARY PATIENT: NICOLE ESTES UNIT: [id number] ADM DATE: 11/21/20 AGE: 70 : 51 SEX: F ROOM/BED: D.2209 AUTHOR: RAMIRO,DOC PHYSICIAN: REFERRING PHYSICIAN: LAZARO DODD MD DATE OF SERVICE: 11/26/20 Case Management Discharge Planning Summary COMMENTS ENTERED DATE: 11/26/20 14:14 CT COMMENT TYPE: Discharge Planning REVIEWER: Iam Valladares CM met with patient to complete DC plan and to evaluate needs. Patient lives independently with spouse, Shayne Estes, . Patient stated that their home is safe and has electricity and running water. Patient stated that the home has 2 steps to enter and they are able to manage the steps without difficulty. Patient stated that she has no problems paying for medications and she fills her medications at [facility] on [address] near [place]. Patient stated that her primary care physician is Dr. Ramirez. At discharge, the patient plans to return home and feels this is a safe discharge. CM discussed availability of home health, rehab services, and medical equipment. Patient declined HHS, SNF, IPR, and DME. ANDREA refusal for HHS signed and placed on chart. Patient voiced no other needs at this time and is satisfied with DC plan. Transportation provider at discharge will be her , Shayne. DC IMM delivered, explained, signed by the patient, and placed in chart. Signed form also left with the patient. CM will continue to follow and will assist as needed with dc plans/needs. DCP REVIEW SUMMARY ANTICIPATED D/C DATE: 11/26/2020 EXPECTED LOS : 5 CASE STATUS: DCP Initiated INITIAL REVIEW: 11/21/2020 INITIAL REVIEWER: Iam Valladares FINAL DISCHARGE DISPOSITION: : FINAL REVIEWER: FINAL REVIEW DATE: DCP Focus Questions & Answers DCP Evaluation QUESTION: ANSWER Patient gives permission to discuss discharge plans with: (name, relationship and number) : spouse, Shayne Estes, Patient's ability to cope with chronic illness : d. No chronic illness Patient's current cognitive status: : *Oriented to person, place, situation, time and present Family / Caregiver's ability to cope with chronic illness: : a. Adequate (ability to meet patient's medical needs, ensures patient attends medical appts.) Patient and/or caregiver agree upon recommended discharge plan? : Yes Physical Status: : Independent with ADL's Family / Caregiver's ability to cope with chronic illness: : a. Adequate (ability to meet patient's medical needs, ensures patient attends medical appts.) Functional screen assessment: : Basic needs can adequately be met by self Does the patient have the ability to pay for or attain post discharge needs / services? : Yes Living Arrangements: : Home with Spouse/Significant Other Is there a likelihood that the patient will require additional services to return to the preadmission environment? : No Equipment needed for post hospitalization: : None Baseline cognitive status: : *Oriented to person, place, situation, time and present Patient with capacity for self-care or can be cared for in same environment as prior to hospitalization? : Yes Physical environment modification needed / anticipated for discharge: : No Medication Management: : Patient states can afford medications Medication Management: : Patient states can read and understand medication labels Pharmacy name(s): : [facility] [address] [place] Does Patient have transportation to get home and to follow-up medical appointments when discharged from the hospital? : Yes Would patient like to participate in any Care Coordination programs (if applicable): : Not applicable Does the patient have electricity at home? : Yes Does the patient have running water in their house? : Yes Equipment in use: : None Mental health screen: : No mental health history DCP Re-evaluation QUESTION: ANSWER Would patient like to participate in any Care Coordination programs (if applicable): : Not applicable PATIENT: NICOLE ESTES ENCOUNTER: [id number] MEDICAL RECORD#: [id number] ADMISSION DATE: 11/21/2020 DISCHARGE DATE: ATTENDING MD: LAZARO HERNANDEZ : AGE: 70 MARITAL STATUS: M DC PLAN ID: [id number] FACILITY: [facility] PRINTED ON: 11/26/20 14:15 CT All edits/amendments must be made on the electronic document DICTATION DATE: 11/26/201414 PLUG PASTER: CARMEN 11/26/201414 RPT#: [id number] DC DATE: STATUS: ADM IN [facility] [address] [place] [address] END OF REPORT
--- NOTE | 2020-11-26 14:35 | NUR ---
PT ESCORTED VIA WHEELCHAIR TO ER ENTRANCE.
== END 2020-11-26 14:43 | disposition home or self-care (01) | DRG 863 ==
LOC: D.ER 13:07 → D.MS 20:53
PROVIDERS: Family Medicine; ADMIT Family Medicine; ATTEND Family Medicine
DX: K68.11 Postprocedural retroperitoneal abscess (principal); E87.6 Hypokalemia; G89.18 Other acute postprocedural pain; E03.9 Hypothyroidism, unspecified; I10 Essential (primary) hypertension; E78.5 Hyperlipidemia, unspecified; K21.9 Gastro-esophageal reflux disease without esophagitis; M19.90 Unspecified osteoarthritis, unspecified site; F41.9 Anxiety disorder, unspecified; G47.00 Insomnia, unspecified; G47.33 Obstructive sleep apnea (adult) (pediatric)

== ENCOUNTER → 2020-11-29 16:52 | Outpatient (CLI) | payer MEDICARE, OTHER ==
[2020-11-22 12:31] VITALS: BMI 30.6
[~2020-11-29 16:52] MED LIST changes: +HYDROCODONE-AC1 EAC2 PO; +MELATONIN 3 MG1 TAB PO; +PROBIOTIC250 MG PO; +TORADOL10 MG PO
== END | disposition home or self-care (01) ==
LOC: D.LABREF 16:52
PROVIDERS: ATTEND Emergency Medicine
DX: R15.2 Fecal urgency (principal)